=== PATIENT | female | born 1940 | race Caucasian/White ===

== ENCOUNTER → 2016-09-04 | Outpatient (CLI) | payer MEDICARE ==
[~2016-09-04] MED LIST: ALBUTEROL17 GM INH; BROMFED DM COU118 ML PO; DOXYCYCLINE HY100 M3 PO; FUROSEMIDE40 MG PO; K-DUR20 ME1 PO; LISINOPRIL PO; LISINOPRIL20 MG PO; METFORMIN HCL500 M1 PO; MIRAPEX1 MG PO; PRADAXA150 MG PO; TIKOSYN125 MCG PO; ULTRAM PO
--- NOTE | ~2016-09-04 | US37 ---
[facility] A Service of [facility] RADIOLOGY TEXT RESULTS PATIENT: VENUS BOURGEOIS LOCATION: SNIV : 41 UNIT #: [id number] AGE: [address]: Balwinder Raines MD SEX: F ORDER DR: [id number] [place] [id number] O MR#: [id number] Acc #: [id number] NAME: VENUS BOURGEOIS : 1940 SEX: F STUDY DATE/TIME: 09/04/2016 9:26 UNIT: SNIV ROOM: STUDY DESCRIPTION: US Carotid W/Doppler Bilateral Attending Physician: Balwinder Raines M.D. Referring Physician: Balwinder Raines M.D. Ordering Physician: Balwinder Raines M.D. Primary Care Physician: Padmini Fields M.D. MEDICAL IMAGING REPORT This report is preliminary unless electronic signature is present. EXAM Bilateral carotid duplex, 09/04/16 HISTORY Bilateral carotid artery stenosis. FINDINGS Duplex imaging of the carotid arteries was performed. The right common carotid artery is patent. Heterogeneous plaque is seen at the right internal carotid bulb and extending to the origin. Velocity in the right common carotid is 94, internal is 182 proximally, 175 mid portion, 118 distally. External is 113 cm per second. Right ICA to CCA ratio is 2.3. On the left side, the common carotid artery is patent. Heterogeneous plaque with calcification and posterior shadowing is seen in the origins of the left internal and external carotid arteries. Velocity in the left common carotid is 73, internal is 87, external is 79 cm per second. Left ICA to CCA ratio is 1.2. Antegrade flow is seen in the right and left vertebral arteries. IMPRESSION 1. A 50 - 69 percent stenosis is seen in the right internal carotid artery. 2. Plaque with less than 50 percent stenosis is seen in the left internal carotid artery. 3. Antegrade flow is seen in the right and left vertebral arteries. [facility] A Service [facility] RADIOLOGY TEXT RESULTS PATIENT: VENUS BOURGEOIS LOCATION: SNIV : 41 UNIT #: [id number] AGE: [address]: Balwinder Raines MD SEX: F ORDER DR: Dictated by... Balwinder Raines M.D. THIS IS AN ELECTRONICALLY VERIFIED REPORT Balwinder Raines M.D. at 09/07/2016 2:06 PM /demar TD: 09/04/2016 20:29 JOB #: [id number] MEDICAL IMAGING REPORT Page 1 of 1
== END | disposition home or self-care (01) ==
LOC: SNIV 08:48
DX: R42 Dizziness and giddiness (principal); I65.23 Occlusion and stenosis of bilateral carotid arteries
CPT/HCPCS: 93880

== ENCOUNTER 2017-01-15 13:45 | Emergency (ER) | payer MEDICARE ==
[~2017-01-15] VITALS: Ht 167.6 cm; Wt 88.5 kg
--- NOTE | ~2017-01-15 | EKG ---
PATIENT: VENUS BOURGEOIS UNIT #: [id number] Ventricular Rate: 82 BPM Atrial Rate: 441 BPM QRS Duration: 78 ms Q-T Interval: 344 ms QTC Calculation(Bezet): 401 ms Calculated R [place]: 27 degrees Calculated T [place]: 25 degrees Diagnosis Line: Atrial fibrillation Diagnosis Line: Abnormal ECG Diagnosis Line: No previous ECGs available Diagnosis Line: Confirmed by ELLYN LAROSE MD ([id number]) on Diagnosis Line: 01/22/2017 9:58:08 PM INTERPRETING : AYLIN
--- NOTE | ~2017-01-15 | CR72 ---
[facility]. [facility] A Service of [facility] RADIOLOGY TEXT RESULTS PATIENT: VENUS BOURGEOIS LOCATION: SED : 41 UNIT #: [id number] AGE: [address]: Jake Claros MD SEX: F ORDER DR: [id number] [address] [address] [id number] E MR#: [id number] Acc #: [id number] NAME: VENUS BOURGEOIS : 1940 SEX: F STUDY DATE/TIME: 01/15/2017 15:34 UNIT: SED ROOM: STUDY DESCRIPTION: CR Chest Single View Portable Attending Physician: Jake Claros M.D. Ordering Physician: Jake Claros M.D. Primary Care Physician: Padmini Fields M.D. MEDICAL IMAGING REPORT This report is preliminary unless electronic signature is present. EXAM AP portable chest 01/15/2017 at 15:34 HISTORY 76-year-old female with mid-back pain and shortness of breath. Dizziness since this morning. History of atrial fibrillation. COMPARISON AP portable chest 06/21/2016. FINDINGS There is stable cardiac enlargement. No acute airspace disease is identified. No pleural effusion or pneumothorax or acute osseous abnormalities are identified. IMPRESSION Stable mild cardiac enlargement. No acute chest findings. Dictated by... Leatha Harding M.D. THIS IS AN ELECTRONICALLY VERIFIED REPORT Leatha Harding M.D. at 01/16/2017 8:31 AM MIKEY/dionne TD: 01/16/2017 00:42 JOB #: [id number] MEDICAL IMAGING REPORT Page 1 of 1
[2017-01-15 14:50] LABS: BASOPHIL# 0.1 X10e3 (0-0.3); BASOPHIL% 0.9 % (0-2.5); EOSINOPHIL# 0.2 X10e3 (0-0.7); EOSINOPHIL% 3.9 % (0.0-7.0); HEMATOCRIT 36.9 % (35.0-45.0); HEMOGLOBIN 12.4 gm/dL (12.0-16.0); LYMPHOCYTE# 1.3 X10e3 (1.0-3.5); LYMPHOCYTE% 23.7 % (17.0-45.0); MEAN CELL VOLUME 92.4 FL (83-96); MEAN CORPUSCULAR HGB CONC 33.6 g/dL (30-36); MEAN PLATELET VOLUME 8.1 FL (6.5-11.5); MONOCYTE# 0.4 X10e3 (0-1.0); MONOCYTE% 6.6 % (3.0-12.0); NEUTROPHIL# 3.6 X10e3 (1.5-7.1); NEUTROPHIL% 64.9 % (40-75); PLATELET COUNT 245 X10e3 (140-420); RED CELL DISTRIBUTION WIDTH 14.3 % (11.0-15.5); WHITE BLOOD COUNT 5.6 X10e3 (4.0-10.5)
[2017-01-15 14:52] LABS: DIFF IND NO
[2017-01-15 14:58] LABS: POC - CKMB 2.7 ng/mL (0.0-7.9); POC - TROPONIN <0.05 ng/mL (<=0.05)
[2017-01-15 15:06] LABS: URINE APPEARANCE CLEAR; URINE BILIRUBIN NEG (NEG); URINE BLOOD NEG (NEG); URINE COLOR YELLOW; URINE GLUCOSE NEG (NORM); URINE KETONE NEG (NEG); URINE LEUKOCYTE ESTERASE 1+ (NEG); URINE NITRATE NEG (NEG); URINE PROTEIN NEG (NEG)
[2017-01-15 15:08] LABS: ALBUMIN SERUM 3.7 g/dL (3.5-5.0); ALKALINE PHOSPHATASE 58 U/L (32-92); ALT (SGPT) 16 U/L (10-40); AST (SGOT) 22 U/L (10-42); BILIRUBIN,TOTAL 0.6 mg/dL (0.2-2.0); BLOOD UREA NITROGEN 26 mg/dL (9-23); BUN/CREATININE RATIO 37.14; CALCIUM SERUM 8.9 mg/dL (8.4-10.2); CARBON DIOXIDE 29 mmol/L (22-31); CHLORIDE 107 mmol/L (100-111); CREATININE SERUM 0.7 mg/dL (0.6-1.4); GLOM FILT RATE Estimated 84.8 mL/min (>60); GLUCOSE FASTING 122 mg/dL (70-110); PROTEIN TOTAL SERUM 6.4 g/dL (6.0-8.3); SODIUM 141 mmol/L (135-145)
[2017-01-15 15:11] LABS: BILIRUBIN, DIRECT <0.1 mg/dL (0.0-0.2); BILIRUBIN,INDIRECT 0.5 mg/dL (0.0-0.9)
[2017-01-15 15:11] LABS: MICRO INDICATED? YES; URINE SOURCE CLEAN CATCH
[2017-01-15 15:20] LABS: URINE BACTERIA 1+ (NEG); URINE SQUAMOUS EPITHELIAL CELL MODERATE /[HPF]
[2017-01-15 16:54] LABS: POC - CKMB 2.1 ng/mL (0.0-7.9)
[2017-01-15 16:55] LABS: POC - TROPONIN <0.05 ng/mL (<=0.05)
== END 2017-01-15 17:32 | disposition home or self-care (01) ==
LOC: SED 13:45
PROVIDERS: Emergency Medicine
DX: I48.91 Unspecified atrial fibrillation (principal); R07.89 Other chest pain; M19.90 Unspecified osteoarthritis, unspecified site; Z88.2 Allergy status to sulfonamides; Z79.84 Long term (current) use of oral hypoglycemic drugs; Z79.899 Other long term (current) drug therapy; Z98.890 Other specified postprocedural states
CPT/HCPCS: 36415; 71010; 80048; 80076; 81003; 82553; 82947; 83880; 84484; 85025; 93005; 99285